=== PATIENT | female | born 1985 | race Caucasian/White ===

== ENCOUNTER 2023-06-20 09:57 | Emergency (ER) | payer BC ==
[2023-06-20] MEDS ORDERED: Boostrix 0.5 ML (Tdap) VIAL (>/=7 yrs of age) ONE (10:10)
== END 2023-06-20 10:33 | disposition home or self-care (01) ==
LOC: NAV ERS 09:57
DX: S68.123A Partial traumatic metacarpophalangeal amputation of left middle finger, initial encounter (principal); I10 Essential (primary) hypertension; W26.0XXA Contact with knife, initial encounter; Z23 Encounter for immunization; Z79.899 Other long term (current) drug therapy
CPT/HCPCS: 90471; 90715